=== PATIENT | male | born 1955 | race Caucasian/White ===

== ENCOUNTER 2019-09-01 09:04 | Day surgery (SDC) | payer MEDICARE, MEDICAID ==
[~2019-09-01] VITALS: Ht 165.1 cm; Wt 90.9 kg
[~2019-09-01 09:04] MED LIST: ASPI-825 PO; CALC0.5C11 PO; CeFAZolin 1 GM/DEXTROSE 50 ML IV ONE; INSLAN SQ; KDUR20 PO; LINA5TAB PO; SODIUM CHLORIDE 0.9% 1,000 ML IV ONE; SODIUM CHLORIDE 0.9% 1,000 ML ONE
[2019-09-01] MEDS ORDERED: LIDOCAINE/PF 1% 30 ML VIAL ONE (09:41)
[2019-09-01 09:42] LABS: BASOPHILS % (AUTO) 1.3 % (0.0-2.0); EOSINOPHILS % (AUTO) 2.9 % (1.0-6.0); HEMATOCRIT 28.9 % (41-53); HEMOGLOBIN 10.1 g/dL (13.5-17.5); LYMPHOCYTES # (AUTO) 1.9 K/uL (1.0-4.8); LYMPHOCYTES % (AUTO) 23.8 % (22.0-44.0); MEAN CORPUSCULAR HEMOGLOBIN 34.6 pg (26.0-34.0); MEAN CORPUSCULAR HGB CONC 34.9 G/dL (31.0-37.0); MEAN CORPUSCULAR VOLUME 99 fL (80-100); MONOCYTES # (AUTO) 0.9 K/uL (0.1-1.0); MONOCYTES % (AUTO) 11.6 % (2.0-9.0); NEUTROPHILS # (AUTO) 4.8 K/uL (1.8-7.7); NEUTROPHILS % (AUTO) 60.4 % (40.0-70.0); PLATELET COUNT (AUTO) 178 K/uL (150-450); RED BLOOD CELL COUNT(AUTO) 2.91 MIL/uL (4.50-5.90); RED CELL DISTRIBUTION WIDTH 12.7 % (11.5-14.5)
[2019-09-01] MEDS ORDERED: LOSA25TA71 PO (09:49)
[2019-09-01] MEDS ORDERED: ATOR40TA28 PO (09:49)
[2019-09-01] MEDS ORDERED: NIFE-64 PO (09:49)
[2019-09-01] MEDS ORDERED: INSU100I26 SQ (09:49)
[2019-09-01] MEDS ORDERED: LINA5TAB PO (09:49)
[2019-09-01] MEDS ORDERED: CLOP75TA3 PO (09:49)
[2019-09-01] MEDS ORDERED: BUME1TAB34 PO (09:49)
[2019-09-01] MEDS ORDERED: B CO1CAP6 PO (09:49)
[2019-09-01 09:51] LABS: CALCIUM, TOTAL 9.6 mg/dL (8.8-10.5); CREATININE 8.81 mg/dL (0.60-1.30); POTASSIUM 3.8 mmol/L (3.5-5.1)
[2019-09-01] MEDS ORDERED: HYDROCODONE/ACETAMINOPHEN 5-325 MG TABLET PO ONE (11:00)
[2019-09-01] MEDS ORDERED: ONDANSETRON HCL 4 MG/2 ML VIAL IVP ONE (12:00)
[2019-09-01] MEDS ORDERED: 0.9% SODIUM CHLORIDE 10 ML VIAL IVP ONE (12:00)
[2019-09-01] MEDS ORDERED: KETAMINE HCL 50 MG/ML 10 ML VIAL IVP ONE (12:00)
[2019-09-01] MEDS ORDERED: LIDOCAINE/PF 2% 5 ML VIAL INJ ONE (12:00)
[2019-09-01] MEDS ORDERED: FentaNYL CITRATE-PF 100 MCG/2 ML VIAL IVP ONE (12:00)
[2019-09-01] MEDS ORDERED: MIDAZOLAM HCL 2 MG/2 ML VIAL IVP ONE (12:00)
[2019-09-01] MEDS ORDERED: EPHEDrine SULFATE 50 MG/ML VIAL IM ONE (12:00)
== END 2019-09-01 12:45 | disposition home or self-care (01) ==
LOC: SURGERY 09:04
PROVIDERS: ATTEND Surgery
DX: T82.898A Other specified complication of vascular prosthetic devices, implants and grafts, initial encounter (principal); I12.0 Hypertensive chronic kidney disease with stage 5 chronic kidney disease or end stage renal disease; N18.6 End stage renal disease; E66.3 Overweight; Z68.33 Body mass index [BMI] 33.0-33.9, adult; Z86.73 Personal history of transient ischemic attack (TIA), and cerebral infarction without residual deficits; Z79.899 Other long term (current) drug therapy; Y83.8 Other surgical procedures as the cause of abnormal reaction of the patient, or of later complication, without mention of misadventure at the time of the procedure; Y92.89 Other specified places as the place of occurrence of the external cause
CPT/HCPCS: 36415; 37607; 80048; 85025; 85610; 85730; 93005; J0690; J2250; J2405; J3010; J3490 ×4; J7030